=== PATIENT | female | born 1940 | race Two or more races ===

== ENCOUNTER 2018-12-29 10:57 | Inpatient (IN) | payer OTHER ==
[~2018-12-29] VITALS: Ht 152.4 cm; Wt 40.8 kg
--- NOTE | 2018-12-29 11:21 | NUR ---
PTE ALERTA Y ORIENTADA X 3 ESFERAS AMBULANDO EN COMPANIA DE FAMILIAR QUIEN REFIERE PTE CON DIFICULTAD RESPIRATORIA DESDE MAL,REFIERE FUE DIAGNOSTICADA CON BRONQUITIS ESTA SEMANA.PTE NO HABLA EN ORACIONES COMPLETA.SE UBICA EN EAU Y SE PRESENTA A DR MIRANDA.
[2018-12-29] MEDS ORDERED: METFORMIN HCL1000 M1 (11:22)
[2018-12-29] MEDS ORDERED: GLIPIZIDE10 MG (11:23)
--- NOTE | 2018-12-29 11:28 | NUR ---
PT ALERTA Y ORIENTADA X3, SE LE ORIENTA SOBRE ORDENES MEDICAS, REFIERE ENTENDER. MR LINNETTE COLECTA MUESTRAS Y CANALIZA BAJO MEDIDAS ASEPTICAS. SE ADMINISTRAN MEDICAMENTOS TEMO ORDEN MEDICA, PT TOLERA. AREA DE VENOPUNCION BELLO DE EDEMA Y ERITEMA. IVF PATENTE.
--- NOTE | 2018-12-29 14:28 | NUR ---
SE LE REALIZAN DXT X3,TEMO ORDENADO. PT SE MANTIENE PENDIENTE DE REPETIR TROPONINA, CKMB, CMP Y DXT A LAS 0.
--- NOTE | 2018-12-29 16:12 | NUR ---
SE RECIBE PACIENTE DEL TURNO ANTERIOR ALERTA Y LEVEMENTE DESORIENTADA X1. NO REFIERE DOLOR AL MOMENTO. CANALIZADA EN BRAZO DERECHO PATENTE Y BELLO DE EDEMA BAJANDO UN 0.45NSS AT 125ML/HR. SE REALIZAN TROPONINAS, CKMB Y CMP. SE AFSHIN DXT QUE RESULTA EN 183MG/GL. SE CHAPARRITA TRANQUILA EN CAMA, BARANADAS ELEVADAS FRENOS COLOCADOS Y CONECTADA MONITOR CARDIACO Y OXIMETRIA CONTINUA.
[2018-12-31] MEDS ORDERED: FENOFIBRATE200 MG PO (08:52)
[2018-12-31] MEDS ORDERED: FERROUS SULFAT325 MG PO (08:52)
[2018-12-31] MEDS ORDERED: ENALAPRIL MALEAT5 MG PO (08:52)
[2018-12-31] MEDS ORDERED: PANTOPRAZOLE SO40 MG PO (08:53)
[2018-12-31] MEDS ORDERED: DICLOFENAC SODI75 MG PO (08:54)
[2019-01-03] MEDS ORDERED: IPRATROPIU0.2 MG/1 M IH (18:17)
[2019-01-03] MEDS ORDERED: AZITHROMYCIN500 MG PO (18:18)
[2019-01-03] MEDS ORDERED: XOPENEX0.63 MG/3 IH (18:18)
== END 2019-01-03 18:45 | disposition home or self-care (01) | DRG 190 ==
LOC: ER 10:57 → MEDI 19:28
PROVIDERS: ADMIT Internal Medicine
PROC: 3E0F7GC Introduction of Other Therapeutic Substance into Respiratory Tract, Via Natural or Artificial Opening (ICD-10-PCS; principal; 2018-12-29)
PROC: 4A12X4Z Monitoring of Cardiac Electrical Activity, External Approach (ICD-10-PCS; 2018-12-29)
PROC: B246ZZZ Ultrasonography of Right and Left Heart (ICD-10-PCS; 2018-12-30)
DX: J44.1 Chronic obstructive pulmonary disease with (acute) exacerbation (principal); J96.00 Acute respiratory failure, unspecified whether with hypoxia or hypercapnia; I50.23 Acute on chronic systolic (congestive) heart failure; J20.9 Acute bronchitis, unspecified; J44.0 Chronic obstructive pulmonary disease with (acute) lower respiratory infection; R87.4 Abnormal immunological findings in specimens from female genital organs; E11.65 Type 2 diabetes mellitus with hyperglycemia; N18.1 Chronic kidney disease, stage 1; D64.89 Other specified anemias; J45.998 Other asthma; Z99.81 Dependence on supplemental oxygen; Z72.0 Tobacco use

== ENCOUNTER 2020-05-30 16:48 | Emergency (ER) | payer OTHER ==
[~2020-05-30] VITALS: Ht 152.4 cm; Wt 44.5 kg
[~2020-05-30 16:48] MED LIST: AZITHROMYCIN500 MG PO; DICLOFENAC SODI75 MG PO; ENALAPRIL MALEAT5 MG PO; FENOFIBRATE200 MG PO; FERROUS SULFAT325 MG PO; GLIPIZIDE10 MG; IPRATROPIU0.2 MG/1 M IH; METFORMIN HCL1000 M1; PANTOPRAZOLE SO40 MG PO; XOPENEX0.63 MG/3 IH
== END 2020-05-30 18:55 | disposition home or self-care (01) ==
LOC: ER 16:48
DX: E11.649 Type 2 diabetes mellitus with hypoglycemia without coma (principal); Z79.84 Long term (current) use of oral hypoglycemic drugs

== ENCOUNTER 2020-06-17 10:35 | Inpatient (IN) | payer OTHER ==
[~2020-06-17] VITALS: Ht 147.3 cm; Wt 40.8 kg
--- NOTE | 2020-06-17 10:51 | NUR ---
PACIENTE LLEGA A ANGELINA DE EMERGENCIAS POR DIFICULTAD RESPIRATORIA DESDE
--- NOTE | 2020-06-17 11:30 | NUR ---
SE NOTIFICA A MS. MERCEDEZ CARDENAS'S PENDIENTES.
--- NOTE | 2020-06-17 12:10 | NUR ---
PTE ALERTA Y ORIENTADA POR DAVEY DIMENSIONES CON BUEN PATRON RESPIRATORIO. RN JESSICA EXTRAE MUESTRAS DE COURT, Y CANALIZA, TEMO ORDEN MEDICA, UTILIZANDO MEDIDAS ASEPTICAS. SE LE ADMINISTRA MEDICAMENTOS TEMO ORDEN MEDICA, UTILIZANDO MEDIDAS ASEPTICAS.
--- NOTE | 2020-06-17 15:54 | NUR ---
PTE ALERTA Y ORIENTADA X 3 ESFERAS,EN COMPANIA DE FAMILIAR,EN PAT CON BARANDAS ELEVADAS,SIN DIFICULTAD RESP AL MOMENTO,NO REFIERE DOLOR,REFIERE DESEA IRSE,SE LE ORIENTA SOBRE MUESTRA PENDIENTE A NANCY Y REFIERE ENTENDER,SE AFSHIN MISMA LA BAJO MEDIDAS ASEPTICAS,PTE REHUSA PRUEBA DE COVID SWAB.AREA DE VENOPUNCION PATENTE Y BELLO DE EDEMA CON FLUIDOS DE MANTENIMIENTO.
[2020-06-18] MEDS ORDERED: GLIPIZIDE10 MG (08:34)
[2020-06-18] MEDS ORDERED: METFORMIN HCL500 M4 (08:34)
== END 2020-06-23 08:37 | disposition expired | DRG 191 ==
LOC: ER 10:35 → SEC-K 18:53 → MEDI 06-19 12:01 → MEDJ 06-19 14:27
PROVIDERS: ADMIT Internal Medicine; ATTEND Internal Medicine
PROC: 4A033R1 Measurement of Arterial Saturation, Peripheral, Percutaneous Approach (ICD-10-PCS; principal; 2020-06-17)
PROC: 8E0ZXY6 Isolation (ICD-10-PCS; 2020-06-17)
PROC: 4A12X4Z Monitoring of Cardiac Electrical Activity, External Approach (ICD-10-PCS; 2020-06-18)
PROC: B24BZZZ Ultrasonography of Heart with Aorta (ICD-10-PCS; 2020-06-19)
DX: J44.1 Chronic obstructive pulmonary disease with (acute) exacerbation (principal); N17.8 Other acute kidney failure; I13.0 Hypertensive heart and chronic kidney disease with heart failure and stage 1 through stage 4 chronic kidney disease, or unspecified chronic kidney disease; Z99.11 Dependence on respirator [ventilator] status; J98.4 Other disorders of lung; J44.0 Chronic obstructive pulmonary disease with (acute) lower respiratory infection; E11.65 Type 2 diabetes mellitus with hyperglycemia; I50.9 Heart failure, unspecified; R77.8 Other specified abnormalities of plasma proteins; D64.9 Anemia, unspecified; E11.22 Type 2 diabetes mellitus with diabetic chronic kidney disease; N18.9 Chronic kidney disease, unspecified; R09.02 Hypoxemia; E86.0 Dehydration; Z20.828 Contact with and (suspected) exposure to other viral communicable diseases; Z91.19 Patient's noncompliance with other medical treatment and regimen; Z79.4 Long term (current) use of insulin